=== PATIENT | female | born 1950 | race Caucasian/White ===

== ENCOUNTER 2021-06-29 09:55 | Day surgery (SDC) | payer MEDICARE, OTHER ==
[~2021-06-29] VITALS: Ht 170.2 cm; Wt 106.4 kg
[~2021-06-29 09:55] MED LIST: ASCO500 PO; Anastrozole1 GM MC; CHOL10002; Magnesium250 MG PO; Multiple Vitam1 EAC1 PO; Super Calcium600 MG PO; THYR60
--- NOTE | 2021-06-29 11:25 | NUR ---
History, Chart, Medications and Allergies reviewed before start of procedure.Lungs clear T/O to Auscultation. Patient confirms NPO status and agrees with scheduled surgery. Pre-Op teaching done. Pt verbalizes understanding. Patient States Post-Procedure ride home has been arranged.
--- NOTE | 2021-06-29 11:36 | NUR ---
06/29/21 1136 Lily Carlton History, Chart, Medications and Allergies reviewed before start of procedure. Patient confirms NPO status and agrees with scheduled surgery. 3-LEAD EKG REVIEWED WITH PHYSICIAN PRIOR TO START OF PROCEDURE. MONITOR INTACT WITH CONTINUOUS PULSE OXIMETRY AND INTERMITTENT BP. PATIENT DETERMINED TO BE ASA APPROPRIATE FOR PROPOFOL SEDATION PRIOR TO START OF PROCEDURE BY
--- NOTE | 2021-06-29 12:42 | NUR ---
Patient up to Ambulate independently. Gait steady. Discharge instructions reviewed with patient. Patient verbalizes understanding. Copy given to patient to take home. Patient States Post-Procedure ride home has been arranged. Discharged via wheelchair to private car for ride home.
== END 2021-06-29 12:42 | disposition home or self-care (01) ==
LOC: ORSCMMR 09:55 → ORD 11:15 → ORSCMMR 11:15
PROVIDERS: Surgery
PROC: 0DBK8ZX Excision of Ascending Colon, Via Natural or Artificial Opening Endoscopic, Diagnostic (ICD-10-PCS; principal; 2021-06-29 11:15)
DX: Z12.11 Encounter for screening for malignant neoplasm of colon (principal); Z86.010 Personal history of colon polyps; D12.4 Benign neoplasm of descending colon
CPT/HCPCS: 88305; J2704; J7120

== ENCOUNTER → 2022-02-03 | Outpatient (CLI) | payer MEDICARE, OTHER | END | disposition home or self-care (01) | LOC: LAB SHORT 14:22 | DX: L08.0 Pyoderma (principal) | CPT/HCPCS: 87070; 87205 ==

== ENCOUNTER 2024-09-25 11:56 | Day surgery (SDC) | payer MEDICARE, OTHER ==
[~2024-09-25] VITALS: Ht 160 cm; Wt 80.6 kg
[~2024-09-25 11:56] MED LIST changes: +Balanced Salt Epinephrine Irrigation Solution 500 mL IR SCH; +Moxifloxacin HCL 0.5 MG/0.1 ML 0.4MLSYR RIGHTEYE SCH; +Ondansetron 4 MG SoluTab MM PRN; +PHENYLEPHRINE\\TROPICAMIDE\\TETRACAINE OPHTHALMIC DILATING SOLN RIGHTEYE PRN; +Povidone-Iodine 450 DROP/30 ML Solution ONE; +Povidone-Iodine 450 DROP/30 ML Solution RIGHTEYE SCH; +Tetracaine HCl/Pf 0.5% Opth Soln 4 ml ONE
[2024-09-25] MEDS ORDERED: HYDCHL50 PO (12:15)
--- NOTE | 2024-09-25 12:21 | NUR ---
09/25/24 1221 Adela Muller UPON ARRIVAL PT RATES ANXIETY 1/10; 10MG PO VALIUM GIVEN PER DR'S ORDERS. PT TOLERATED TETRACAINE EYE DROP AND PLEDGET PLACEMENT WELL. CALL LIGHT IN REACH. WARM BLANKETS PROVIDED.
[2024-09-25] MEDS ORDERED: Tetracaine HCl 0.5% Opth Soln 15 ml RIGHTEYE ONE (12:55)
--- NOTE | 2024-09-25 12:58 | NUR ---
09/25/24 1258 Laura Birmingham 133/74 98% WITH 10L BLOW BY
[2024-09-25 13:18] VITALS: BP 145/82
== END 2024-09-25 13:34 | disposition home or self-care (01) ==
LOC: ORSCSDS 11:56
PROVIDERS: Student in an Organized Health Care Education/Training Program
PROC: 08RJ3JZ Replacement of Right Lens with Synthetic Substitute, Percutaneous Approach (ICD-10-PCS; principal; 2024-09-25 13:30)
DX: H25.813 Combined forms of age-related cataract, bilateral (principal); E78.5 Hyperlipidemia, unspecified; E03.9 Hypothyroidism, unspecified; H04.123 Dry eye syndrome of bilateral lacrimal glands; Z79.899 Other long term (current) drug therapy
CPT/HCPCS: A9270; V2632

== ENCOUNTER 2024-10-08 10:56 | Day surgery (SDC) | payer MEDICARE, OTHER ==
[~2024-10-08] VITALS: Ht 157.5 cm; Wt 80.5 kg
[~2024-10-08 10:56] MED LIST changes: +HYDCHL50 PO; +Moxifloxacin HCL 0.5 MG/0.1 ML 0.4MLSYR LEFTEYE SCH; -Moxifloxacin HCL 0.5 MG/0.1 ML 0.4MLSYR RIGHTEYE SCH; +PHENYLEPHRINE\\TROPICAMIDE\\TETRACAINE OPHTHALMIC DILATING SOLN LEFTEYE PRN; -PHENYLEPHRINE\\TROPICAMIDE\\TETRACAINE OPHTHALMIC DILATING SOLN RIGHTEYE PRN; +Povidone-Iodine 450 DROP/30 ML Solution LEFTEYE SCH; -Povidone-Iodine 450 DROP/30 ML Solution RIGHTEYE SCH
--- NOTE | 2024-10-08 11:16 | NUR ---
10/08/24 [id number] Bella Torres CALL LIGHT WITHIN REACH. PT ON CONTINOUS PULSE OXIMETER FOR CLOSE MONITORING.
--- NOTE | 2024-10-08 11:51 | NUR ---
10/08/24 1151 Bertha Ramsay HR: 62 BP: 124/70 SPO2: 98% ON BLOW BY O2
[2024-10-08 12:05] VITALS: BP 130/74
--- NOTE | 2024-10-08 12:17 | NUR ---
10/08/24 1217 Gwendolyn Moreno INSTRUCTED FRIEND TO PULL CAR AROUND
== END 2024-10-08 12:19 | disposition home or self-care (01) ==
LOC: ORSCSDS 10:56
PROVIDERS: Student in an Organized Health Care Education/Training Program
PROC: 08RK3JZ Replacement of Left Lens with Synthetic Substitute, Percutaneous Approach (ICD-10-PCS; principal; 2024-10-08 12:30)
DX: H25.812 Combined forms of age-related cataract, left eye (principal); Z96.1 Presence of intraocular lens; Z87.891 Personal history of nicotine dependence; E78.5 Hyperlipidemia, unspecified; Z85.3 Personal history of malignant neoplasm of breast; L40.9 Psoriasis, unspecified; Z79.899 Other long term (current) drug therapy
CPT/HCPCS: A9270; V2632